=== PATIENT | female | born 1930 | race Caucasian/White ===

== ENCOUNTER 2018-02-09 12:29 | Emergency (ER) | payer MEDICARE ==
[~2018-02-09] VITALS: Ht 167.6 cm; Wt 81.0 kg
[~2018-02-09 12:29] MED LIST: ALBU8.5H8 IH; BUDE10.2 INH; DOXE10CA2 PO; GABA-341 PO; GUAI120015 PO; LEVO50TA67 PO; LOP25T PO; METF500T PO; PARO40TA81 PO; SIMV10TA2 PO; TRAM50TA2 PO
[2018-02-09 13:50] LABS: BASOPHILS % (AUTO) 0.3 % (0-1); EOSINOPHILS # (AUTO) 0.2 X10'3 (0-0.9); EOSINOPHILS % (AUTO) 2.2 % (0-6); HEMATOCRIT 38.8 % (35.0-45.0); HEMOGLOBIN 12.7 g/dl (12.0-16.0); LYMPHOCYTES # (AUTO) 1.9 X10'3 (1.1-4.8); MEAN CORPUSCULAR HEMOGLOBIN 30.9 PG (27.0-31.0); MEAN CORPUSCULAR HGB CONC 32.8 % (33.0-36.5); MEAN CORPUSCULAR VOLUME 94.3 FL (78-98); MEAN PLATELET VOLUME 8.1 FL (7.4-10.4); MONOCYTES # (AUTO) 0.5 X10'3 (0-0.9); MONOCYTES % (AUTO) 6.4 % (2-12); NEUTROPHILS # (AUTO) 5.4 X10'3 (1.8-7.7); NEUTROPHILS % (AUTO) 67.1 % (42-75); PLATELET COUNT 218 X10'3 (140-440); RED BLOOD COUNT 4.11 X10'6 (4.20-5.60); RED CELL DISTRIBUTION WIDTH 15.1 % (11.5-14.5)
[2018-02-09 14:01] LABS: INR 0.9 INR; PARTIAL THROMBOPLASTIN TIME 23 SECONDS (22-32); PROTHROMBIN TIME 9.1 SECONDS (9.0-12.0)
[2018-02-09 14:07] LABS: ALANINE AMINOTRANSFERASE 18 U/L (12-78); ALBUMIN 2.9 G/DL (3.4-5.0); ALBUMIN/GLOBULIN RATIO 0.8 (1.1-1.5); ALKALINE PHOSPHATASE 79 IU/L (46-116); ANION GAP 7 (8-16); ASPARTATE AMINO TRANSFERASE 15 U/L (10-37); BILIRUBIN,TOTAL 0.2 MG/DL (0.1-1.0); BLOOD UREA NITROGEN 18 MG/DL (7-18); BUN/CREATININE RATIO 14.3 (6.6-38.0); CALCIUM 8.4 MG/DL (8.5-10.1); CHLORIDE 105 MMOL/L (99-107); CREATININE 1.26 MG/DL (0.40-0.90); GLUCOSE 163 MG/DL (70-104); POTASSIUM 4.2 MMOL/L (3.5-5.1); SODIUM 144 MMOL/L (135-145); TOTAL CARBON DIOXIDE 32.1 MMOL/L (24-32); TOTAL PROTEIN 6.6 G/DL (6.4-8.2); eGFR 40 ML/MIN
[2018-02-09] MEDS ORDERED: normal saline 1000ML IV soln IVB ONE (14:10)
[2018-02-09 15:11] LABS: CLARITY,URINE CLEAR (Clear); COLOR,URINE YELLOW (Yellow); GLUCOSE, URINE NEGATIVE (Neg); KETONES,URINE TRACE mg/dl (Neg); LEUKOCYTE ESTERASE ,URINE NEGATIVE (Neg); NITRITES, URINE NEGATIVE (Neg); OCCULT BLOOD,URINE NEGATIVE (Neg); PH,URINE 5.5 (4.8-8.0); PROTEIN,URINE NEGATIVE (Neg); UROBILINOGEN,URINE 0.2 E.U/dL (0.2-1.0)
[2018-02-09 15:13] LABS: UA COLLECTION TYPE STRAIGHT CATH
[2018-02-09 15:34] VITALS: BP 133/68
== END 2018-02-09 15:37 | disposition home or self-care (01) ==
LOC: ER 12:30
DX: S81.802A Unspecified open wound, left lower leg, initial encounter (principal); E86.0 Dehydration; R53.1 Weakness; R51 Headache; I10 Essential (primary) hypertension; J44.9 Chronic obstructive pulmonary disease, unspecified; E11.9 Type 2 diabetes mellitus without complications; Z86.73 Personal history of transient ischemic attack (TIA), and cerebral infarction without residual deficits; Z98.890 Other specified postprocedural states; Z90.49 Acquired absence of other specified parts of digestive tract; Z87.442 Personal history of urinary calculi; Z79.899 Other long term (current) drug therapy; Z88.5 Allergy status to narcotic agent; X58.XXXA Exposure to other specified factors, initial encounter; Y93.89 Activity, other specified; Y92.89 Other specified places as the place of occurrence of the external cause; Y99.9 Unspecified external cause status
CPT/HCPCS: 36415; 70450; 71045; 80053; 81003; 84484; 85025; 85610; 85730; 93005; 96360; 99285; J7030; P9612

== ENCOUNTER 2018-06-07 09:18 | Inpatient (IN) | payer MEDICARE | END 2018-06-11 16:50 | disposition home or self-care (01) | LOC: ER 09:18 → ED HOLD 11:17 → SUR 3N 13:05 | DX: J44.1 Chronic obstructive pulmonary disease with (acute) exacerbation (principal); J18.9 Pneumonia, unspecified organism; E11.9 Type 2 diabetes mellitus without complications; F32.9 Major depressive disorder, single episode, unspecified ==

== ENCOUNTER 2018-09-10 11:58 | Inpatient (IN) | payer MEDICARE ==
[~2018-09-10] VITALS: Ht 170.2 cm; Wt 70.0 kg
[~2018-09-10 11:58] MED LIST changes: +ACET-2119 PO; +CEFP100T7 PO; +CHOL10002 PO; +CYAN-19 PO; +DOCU-20 PO; -DOXE10CA2 PO; +DULO60CA64 PO; +FOLI0.4T2 PO; -GABA-341 PO; +GABA-532 PO; -GUAI120015 PO; -METF500T PO; +NYST1000 PO; -PARO40TA81 PO; +TURM538C PO
--- NOTE | 2018-09-10 12:04 | NUR ---
EKG 1200
[2018-09-10] MEDS ORDERED: ondansetron/PF 4mg/2ml inj IV ONE (12:15)
[2018-09-10] MEDS ORDERED: morphine 4 MG/ML inj SYRINge IV ONE (12:15)
[2018-09-10 12:36] LABS: BASOPHILS # (AUTO) 0.1 X10'3 (0-0.2); BASOPHILS % (AUTO) 0.5 % (0-1); EOSINOPHILS % (AUTO) 0 % (0-6); HEMATOCRIT 37.3 % (35.0-45.0); HEMOGLOBIN 12.6 g/dl (12.0-16.0); LYMPHOCYTES # (AUTO) 0.6 X10'3 (1.1-4.8); LYMPHOCYTES % (AUTO) 3.4 % (21-51); MEAN CORPUSCULAR HEMOGLOBIN 31.7 PG (27.0-31.0); MEAN CORPUSCULAR HGB CONC 33.9 g/dL (33.0-36.5); MEAN CORPUSCULAR VOLUME 93.3 FL (78-98); MEAN PLATELET VOLUME 8.6 FL (7.4-10.4); MONOCYTES # (AUTO) 1.2 X10'3 (0-0.9); MONOCYTES % (AUTO) 6.2 % (2-12); NEUTROPHILS % (AUTO) 89.9 % (42-75); PLATELET COUNT 180 X10'3 (140-440); RED BLOOD COUNT 3.99 X10'6 (4.20-5.60); RED CELL DISTRIBUTION WIDTH 14.4 % (11.5-14.5); WHITE BLOOD COUNT 18.9 X10'3 (4.5-11.0)
[2018-09-10 12:40] LABS: ABG BASE EXCESS 5.2 mmol/L (-2.0-3.0); ABG HCO3 30.4 mmol/L (22.0-26.0); ABG OXYGEN SATURATION 81.4 % (95-98); ABG PH (T) 7.429 (7.350-7.450); ABG PO2 (T) 45.4 mmHg (83-108); ALLEN'S TEST Positive; FCOHb 1.3 % (0.5-1.5); FMetHb 0.3 % (0.3-1.12); FO2Hb 80.1 % (94-100); TOTAL HEMOGLOBIN 13.8 G/dl (12.0-16.0)
[2018-09-10 12:51] LABS: INR 1.1 INR; PARTIAL THROMBOPLASTIN TIME 27 SECONDS (22-32)
[2018-09-10 12:53] LABS: ALANINE AMINOTRANSFERASE 40 U/L (12-78); ALBUMIN 2.4 G/DL (3.4-5.0); ALBUMIN/GLOBULIN RATIO 0.6 (1.1-1.5); ALKALINE PHOSPHATASE 81 IU/L (46-116); ANION GAP 7 (8-16); ASPARTATE AMINO TRANSFERASE 29 U/L (10-37); BILIRUBIN,TOTAL 0.8 MG/DL (0.1-1.0); BLOOD UREA NITROGEN 28 MG/DL (7-18); CALCIUM 9.4 MG/DL (8.5-10.1); CHLORIDE 100 MMOL/L (99-107); CREATININE 1.27 MG/DL (0.40-0.90); GLUCOSE 173 MG/DL (70-104); POTASSIUM 3.9 MMOL/L (3.5-5.1); SODIUM 137 MMOL/L (135-145); TOTAL CARBON DIOXIDE 29.7 MMOL/L (24-32); TOTAL PROTEIN 6.5 G/DL (6.4-8.2); eGFR 40 ML/MIN
[2018-09-10] MEDS ORDERED: levoFLOXACIN-Levaquin 500mg/D5 100 ML IV ONE (13:00)
[2018-09-10 13:02] LABS: CLARITY,URINE SLIGHTLY CLOUDY (Clear); COLOR,URINE YELLOW (Yellow); GLUCOSE, URINE NEGATIVE (Neg); KETONES,URINE NEGATIVE (Neg); LEUKOCYTE ESTERASE ,URINE TRACE (Neg); NITRITES, URINE NEGATIVE (Neg); OCCULT BLOOD,URINE MODERATE (Neg); PH,URINE 5.5 (4.8-8.0); PROTEIN,URINE 30 mg/dl (Neg); UROBILINOGEN,URINE 0.2 E.U/dL (0.2-1.0)
[2018-09-10 13:06] LABS: UA COLLECTION TYPE STRAIGHT CATH
[2018-09-10 13:20] LABS: SQUAMOUS EPITHELIAL CELL,UR MODERATE /LPF (FEW)
[2018-09-10 13:23] LABS: BACTERIA,URINE FEW /HPF (Neg); RBC,URINE 0-2 /HPF (0-2); WBC,URINE 0-4 /HPF (0-4)
[2018-09-10] MEDS ORDERED: iohexol 350MG/ML 100ml bottle IV ONE (13:34)
--- NOTE | 2018-09-10 13:41 | NUR ---
PT RESTING ON BIPAP O2 SATS IMPROVED. FAMILY AT BEDSIDE WILL CONT TO MONITOR
--- NOTE | 2018-09-10 15:55 | NUR ---
HOSPTIALIST AT BEDSIDE
[2018-09-10] MEDS ORDERED: dextrose 50%-water 50ml dispensing syringe IV PRN ×2 (16:10)
[2018-09-10] MEDS ORDERED: potassium Cl 20 mEq SR tablet PO PRN ×2 (16:10)
[2018-09-10] MEDS ORDERED: MESSAGE TO PHARMACY PO ONE (16:10)
[2018-09-10] MEDS ORDERED: acetaminophen 650mg rectal suppository RC PRN (16:10)
[2018-09-10] MEDS ORDERED: magnesium 2GM in 50ml NS 50 ML IV PRN (16:10)
[2018-09-10] MEDS ORDERED: HYDROmorphone inj. 0.5 MG/0.5 ML DISP.SYRIN IV PRN (16:10)
[2018-09-10] MEDS ORDERED: glucagon, human recombinant 1mg kit SUBCUT PRN (16:10)
[2018-09-10] MEDS ORDERED: potassium Cl 40MEQ/NS 500ml 500 ML IV PRN ×2 (16:10)
[2018-09-10] MEDS ORDERED: vancomycin/NS 1 GM ADD-VANTAGE 250 ML IV ONE (16:10)
[2018-09-10] MEDS ORDERED: mag hydrox/Alum hydrox/simeth 30ml oral suspension PO PRN (16:10)
[2018-09-10] MEDS ORDERED: bisacodyl 10mg suppository rectal RC PRN (16:10)
[2018-09-10] MEDS ORDERED: acetaminophen 325mg tablet PO PRN (16:10)
[2018-09-10] MEDS ORDERED: magnesium 4gm in 100ml NS 100 ML IV PRN (16:10)
[2018-09-10] MEDS ORDERED: dextrose ORAL solution 15 GM/59 ML bottle PO PRN ×2 (16:10)
[2018-09-10] MEDS ORDERED: ondansetron/PF 4mg/2ml inj IV PRN (16:10)
--- NOTE | 2018-09-10 16:38 | NUR ---
REPORT CALLED TO FLOOR. RN TO TAKE PT UP VIA ROSALVA
--- NOTE | 2018-09-10 16:40 | NUR ---
Received report on patient, awaiting transfer to unit.
[2018-09-10 16:57] LABS: HEMOGLOBIN A1C 7.1 % (4.5-6.2)
[2018-09-10 17:00] VITALS: BP 104/59
--- NOTE | 2018-09-10 17:00 | NUR ---
Pt arrived to unit at this time wearing non-rebreather, transferred to hospital bed and attached to continuous mobile monitoring. Pt on non-rebreather at 5L and satting 91% per RT. BiPAP set up at bedside incase needed. Pt in visible discomfort, trying to speak but unable to speak clearly enough to be understood, family attempting to assist but still unable to fully understand patient. Patient desatted to mid 70's, showing visible signs of distress including gasping, grimacing, crying out. Non-rebreather removed and BiPAP put in place, O2 saturation improved to 84-85% on FiO2 of 60%, pt still visibly distressed/anxious. Notified respiratory therapy, requesting assistance. Pt complaint of pain, severe pain medication scale used, 1mg IV dilaudid administered. Pt visibly in less pain after administration. Respiratory therapy to patient bedside, FiO2 increased to 65%, pt now satting 88-90%. Pt appears more comfortable, however still very ill. IVF and scheduled IV meds administered, FSBG assessed. Family leaving at this time as patient appears more comfortable. Dr Franks at patient bedside, received order for olivarez catheter placement per protocol for monitoring critically ill patient. Still unable to do CT scans at this time due to patient's dependence on BiPAP, MD aware.
[2018-09-10] MEDS: HYDROmorphone 1 mg/ml syringe IV PRN (17:28)
[2018-09-10] MEDS: methylPREDNISolone sod succ 125mg/2ml vial IV SCH (17:46)
[2018-09-10] MEDS: normal saline 1000ml 1,000 ML IV SCH (17:46)
[2018-09-10 18:00] VITALS: BP 123/68
--- NOTE | 2018-09-10 18:15 | NUR ---
Problems reprioritized. Patient report given, questions answered & plan of care reviewed with JOSEF Miranda.
--- NOTE | 2018-09-10 18:36 | NUR ---
Patient in room PCU 3012. I have received report from Delmi BAHENA and had the opportunity to ask questions and assume patient care. pt is on bipa 65% fio2, O2 @90%, vanco @166, tachy at 114
[2018-09-10 19:11] LABS: ABG BASE EXCESS 1.8 mmol/L (-2.0-3.0); ABG HCO3 27.3 mmol/L (22.0-26.0); ABG OXYGEN SATURATION 92.5 % (95-98); ABG PCO2 (T) 46.2 mmHg (32.0-45.0); FCOHb 0.1 % (0.5-1.5); FMetHb 0.3 % (0.3-1.12); FO2Hb 92.1 % (94-100); MINUTE VOLUME 11 L/min; RESPIRATORY RATE (OBSERVED) 22 b/min; TOTAL HEMOGLOBIN 13.4 G/dl (12.0-16.0)
[2018-09-10 19:30] LABS: D-DIMER 15.46 MG/L FEU (0-0.50)
[2018-09-10] MEDS: ipratropium/albuterol 3ml nebule NEB SCH ×2 (20:05→23:02)
[2018-09-10] MEDS: insulin glargine (Lantus) pen - multi-dose SQ SCH (21:00)
[2018-09-10] MEDS ORDERED: HYDR2TAB28 PO (21:54)
[2018-09-10] MEDS ORDERED: MULT1CAP44 PO (21:54)
[2018-09-10] MEDS ORDERED: FLUT1BLS3 INH (21:54)
[2018-09-10] MEDS ORDERED: CELE200C PO (21:58)
--- NOTE | 2018-09-10 22:24 | NUR ---
PAGER ID: [phone] MESSAGE: pt Mar Cano, [id number], d-dimer is 15.5, CXR is negative, no CTA done, pt coming with acute respiratory distress, bipap 65% fio2, O2 92%. Thanks, Ruth BAHENA [phone]! Addendum: 09/10/18 at 2231 by Ruth Mota RN received and order of levonox 70mg SQ once
[2018-09-10] MEDS ORDERED: enoxaparin 40mg/0.4ml syringe SUBCUT ONE (22:30)
[2018-09-10] MEDS ORDERED: enoxaparin 30mg/0.3ml syringe SUBCUT ONE (22:45)
[2018-09-10 23:00] VITALS: BP 102/87
[2018-09-11] VITALS (9 sets, daily range): BP systolic 114–140; BP diastolic 61–94
[2018-09-11] MEDS: methylPREDNISolone sod succ 125mg/2ml vial IV SCH ×3 (00:21→16:54)
[2018-09-11] MEDS: cefepime 1GM/NS ADD-VANTAGE 100 ML IV SCH ×3 (00:21→21:49)
[2018-09-11] MEDS: metroNIDAZOLE-Flagyl 500mg/NS 100 ML IV SCH ×3 (01:44→16:54)
--- NOTE | 2018-09-11 06:21 | NUR ---
Problems reprioritized. Patient report given, questions answered & plan of care reviewed with Loulou BAHENA.
--- NOTE | 2018-09-11 06:35 | NUR ---
Patient in room PCU 3012. I have received report from Ruth BAHENA and had the opportunity to ask questions and assume patient care.
[2018-09-11] MEDS: ipratropium/albuterol 3ml nebule NEB SCH ×5 (07:33→23:00)
[2018-09-11] MEDS: K and/or MAG REPLACEMENT MC SCH (08:00)
[2018-09-11] MEDS ORDERED: enoxaparin 40mg/0.4ml syringe SQ SCH (08:00)
[2018-09-11] MEDS ORDERED: enoxaparin 80mg/0.8ml syringe SUBCUT SCH (08:00)
--- NOTE | 2018-09-11 08:02 | NUR ---
PAGER ID: [phone] MESSAGE: Mando [id number] [place]. Pt is having anxiety, has no anxiety medications ordered. Please advise, Loulou [phone]
[2018-09-11] MEDS ORDERED: LORazepam 0.5 MG tablet PO PRN (08:05)
[2018-09-11 08:22] LABS: HEMOGLOBIN 11.8 g/dl (12.0-16.0)
[2018-09-11 08:24] LABS: HEMATOCRIT 35.6 % (35.0-45.0); MEAN CORPUSCULAR HEMOGLOBIN 31.2 PG (27.0-31.0); MEAN CORPUSCULAR VOLUME 94.3 FL (78-98); MEAN PLATELET VOLUME 8.9 FL (7.4-10.4); PLATELET COUNT 171 X10'3 (140-440); RED BLOOD COUNT 3.77 X10'6 (4.20-5.60); RED CELL DISTRIBUTION WIDTH 14.6 % (11.5-14.5); WHITE BLOOD COUNT 16.6 X10'3 (4.5-11.0)
[2018-09-11 08:33] LABS: ALANINE AMINOTRANSFERASE 29 U/L (12-78); ALBUMIN 1.9 G/DL (3.4-5.0); ALBUMIN/GLOBULIN RATIO 0.4 (1.1-1.5); ALKALINE PHOSPHATASE 78 IU/L (46-116); ANION GAP 10 (8-16); ASPARTATE AMINO TRANSFERASE 16 U/L (10-37); BILIRUBIN,TOTAL 0.5 MG/DL (0.1-1.0); BLOOD UREA NITROGEN 37 MG/DL (7-18); BUN/CREATININE RATIO 30.3 (6.6-38.0); CALCIUM 9.4 MG/DL (8.5-10.1); CHLORIDE 103 MMOL/L (99-107); CREATININE 1.22 MG/DL (0.40-0.90); GLUCOSE 220 MG/DL (70-104); POTASSIUM 4.1 MMOL/L (3.5-5.1); SODIUM 139 MMOL/L (135-145); TOTAL CARBON DIOXIDE 26.4 MMOL/L (24-32); TOTAL PROTEIN 6.3 G/DL (6.4-8.2); eGFR 42 ML/MIN
[2018-09-11 08:48] LABS: PLATELET ESTIMATE NORMAL; TOTAL CELLS COUNTED 100
[2018-09-11] MEDS: normal saline 1000ml 1,000 ML IV SCH (08:49)
[2018-09-11] MEDS: enoxaparin 30mg/0.3ml syringe SQ SCH ×2 (09:24→19:56)
[2018-09-11] MEDS: enoxaparin 40mg/0.4ml syringe SQ SCH ×2 (09:25→19:56)
--- NOTE | 2018-09-11 09:41 | NUR ---
PAGER ID: [phone] MESSAGE: Jerome Estrella. Pt c/o Chest pain, protocol Stat EKG being done at this time. Loulou [phone]
--- NOTE | 2018-09-11 09:52 | NUR ---
PAGER ID: [phone] MESSAGE: [id number] Jerome. Have EKG please call and I will bring it to you. Loulou [phone]
--- NOTE | 2018-09-11 10:56 | NUR ---
Dr. Franks came to nurses station and reviewed EKG, ordered a one time troponin. No other orders at this time.
[2018-09-11] MEDS: insulin Lispro (HumaLOG) vial - multi-dose SQ SCH ×2 (12:32→19:54)
[2018-09-11] MEDS ORDERED: iohexol 350MG/ML 100ml bottle IV ONE (13:23)
--- NOTE | 2018-09-11 13:26 | NUR ---
Paged respiratory therapist for spectra link before going to CT. Vitaly Please give me call. Rm [id number]. Going down for CT. Thanks.
--- NOTE | 2018-09-11 14:52 | NUR ---
DM Consult: A1C 7.1. Pt admit w/ aspiration pneumonitis pending BSS. Pending CT abdomen r/t abdominal pain and results will determine if son makes pt comfort care per MD note. DM ed not appropriate at this time. Addendum: 09/11/18 at [address] Amended: Links added.
--- NOTE | 2018-09-11 15:34 | NUR ---
PAGER ID: [phone] MESSAGE: 301Jerome [place]. Pt's son is at the bedside. [facility] [id number]
--- NOTE | 2018-09-11 16:12 | NUR ---
PICC services was called to asses this patient for a PIV after multiple failed attempts. I was not able to palpate an appropriate vein but did find the patient's Cephalic vein using ultrasound. I was able to place a PIV after one attempt. The pt. did complain about the initial poke but otherwise tolerated the procedure well. Addendum: 09/11/18 at 1615 by Christ Adkins RN Amended: Links added.
--- NOTE | 2018-09-11 18:32 | NUR ---
Problems reprioritized. Patient report given, questions answered & plan of care reviewed with Ruth BAHENA. Patient stable at transfer of care.
--- NOTE | 2018-09-11 18:46 | NUR ---
Patient in room PCU 3012. I have received report from Loulou BAHENA and had the opportunity to ask questions and assume patient care. pt is on bipap 40% fi02 02 sat 94%, family at bedside, SR, NS @60
[2018-09-11] MEDS ORDERED: vancomycin/NS 1 GM ADD-VANTAGE 250 ML IV SCH (19:00)
[2018-09-11] MEDS: lactobacillus rhamnosus 10,000 MMU CELLS/CAPSULE PO SCH (20:00)
[2018-09-11] MEDS: insulin glargine (Lantus) pen - multi-dose SQ SCH (22:04)
[2018-09-11] MEDS: HYDROmorphone 1 mg/ml syringe IV PRN (22:07)
--- NOTE | 2018-09-11 22:40 | NUR ---
fio2 is down to 25% and pt O2 is on 94-98%
[2018-09-12] MEDS: metroNIDAZOLE-Flagyl 500mg/NS 100 ML IV SCH ×3 (00:28→16:39)
[2018-09-12] MEDS: methylPREDNISolone sod succ 125mg/2ml vial IV SCH ×3 (00:28→16:39)
[2018-09-12] MEDS: normal saline 1000ml 1,000 ML IV SCH ×2 (01:29→15:06)
[2018-09-12 03:00] VITALS: BP 106/59
--- NOTE | 2018-09-12 03:00 | NUR ---
Ousmane RT put a NS with 3L on pt, O2 is 97%, pt is tolerating well
--- NOTE | 2018-09-12 06:11 | NUR ---
Problems reprioritized. Patient report given, questions answered & plan of care reviewed with Kirsten BAHENA.
--- NOTE | 2018-09-12 06:34 | NUR ---
Patient in room PCU 3012. I have received report from JOSEF Miranda and had the opportunity to ask questions and assume patient care.
[2018-09-12] MEDS: ipratropium/albuterol 3ml nebule NEB SCH ×3 (06:52→15:00)
[2018-09-12 07:00] VITALS: BP 125/77
[2018-09-12] MEDS: K and/or MAG REPLACEMENT MC SCH (08:00)
[2018-09-12] MEDS: cefepime 1GM/NS ADD-VANTAGE 100 ML IV SCH (08:03)
[2018-09-12] MEDS: lactobacillus rhamnosus 10,000 MMU CELLS/CAPSULE PO SCH (08:03)
[2018-09-12] MEDS: enoxaparin 30mg/0.3ml syringe SQ SCH (08:04)
[2018-09-12] MEDS: enoxaparin 40mg/0.4ml syringe SQ SCH (08:05)
[2018-09-12] MEDS: HYDROmorphone 1 mg/ml syringe IV PRN ×3 (10:11→20:02)
--- NOTE | 2018-09-12 10:25 | NUR ---
Pt's Humalog not in pt specific bin in [facility]. Messaged pharmacy for replacement.
[2018-09-12 11:00] VITALS: BP 103/65
[2018-09-12] MEDS: insulin Lispro (HumaLOG) vial - multi-dose SQ SCH (13:47)
--- NOTE | 2018-09-12 14:30 | NUR ---
Paged Dr. Mcdermott re pt family request. PAGER ID: [phone] MESSAGE: Pt Mar Cano in [id number]. Family at bedside, wishing to speak with you. Thanks! JOSEF Curtis [phone]
[2018-09-12 15:00] VITALS: BP 116/63
[2018-09-12] MEDS ORDERED: oxyCODONE/APAP 10/325mg tablet PO PRN ×2 (18:20)
[2018-09-12] MEDS ORDERED: oxyCODONE/APAP 5-325mg tablet PO PRN ×2 (18:20)
--- NOTE | 2018-09-12 18:44 | NUR ---
Problems reprioritized. Patient report given, questions answered & plan of care reviewed with JOSEF Street.
--- NOTE | 2018-09-12 18:46 | NUR ---
Patient in room PCU 3020. I have received report from Kirsten BAHENA and had the opportunity to ask questions and assume patient care. Pt currently sleeping. Recently placed on comfort care. DNR band placed at this time.
[2018-09-13] MEDS: HYDROmorphone 1 mg/ml syringe IV PRN ×3 (00:18→10:47)
--- NOTE | 2018-09-13 06:24 | NUR ---
Problems reprioritized. Patient report given, questions answered & plan of care reviewed with Rosa Maria BAHENA.
--- NOTE | 2018-09-13 06:31 | NUR ---
Patient in room PCU 3020. I have received report from JOSEF Street and had the opportunity to ask questions and assume patient care. Pt seen for bedside report, resting with eyes closed
[2018-09-13] MEDS: K and/or MAG REPLACEMENT MC SCH (08:00)
[2018-09-13] MEDS: normal saline 1000ml 1,000 ML IV SCH (08:13)
--- NOTE | 2018-09-13 13:31 | NUR ---
Family at bedside visiting patient.
[2018-09-13] MEDS ORDERED: morphine 10mg/0.5ml (conc. morphine) oral syringe PO PRN ×2 (14:25)
[2018-09-13] MEDS ORDERED: HYDROmorphone/NS 1 mg/ml CADD 50 ML IV SCH (18:10)
[2018-09-13] MEDS ORDERED: CADD PCA waste documentation MC SCH (18:20)
[2018-09-13] MEDS ORDERED: VANCOMYCIN LEVEL IV ONE (18:30)
[2018-09-13 19:00] VITALS: BP 151/71
[2018-09-13] MEDS: HYDROmorphone/NS 1 mg/ml CADD 50 ML IV SCH ×3 (20:18→23:00)
[2018-09-13] MEDS: LORazepam 2 mg/ml vial IV PRN (20:46)
[2018-09-14] MEDS: HYDROmorphone/NS 1 mg/ml CADD 50 ML IV SCH ×11 (01:00→23:00)
[2018-09-14] MEDS: normal saline 1000ml 1,000 ML IV SCH ×2 (03:29→20:00)
[2018-09-14 06:00] VITALS: BP 142/73
--- NOTE | 2018-09-14 06:15 | NUR ---
Patient in room PCU 3020. I have received report from JOSEF Street and had the opportunity to ask questions and assume patient care.
--- NOTE | 2018-09-14 06:33 | NUR ---
Problems reprioritized. Patient report given, questions answered & plan of care reviewed with Kirsten BAHENA.
--- NOTE | 2018-09-14 12:30 | NUR ---
Difficulty in changing CADD pump settings per Dr. Natarajan's order to decrease rate from 0.2mg/hr to 0.1mg/hr. [place] volume inadvertently reset to 45mL from 45.7mL.
[2018-09-14] MEDS ORDERED: HYDROmorphone/NS 1 mg/ml CADD 50 ML IV SCH (13:00)
--- NOTE | 2018-09-14 13:50 | NUR ---
CADD pump documentation after inadvertent residual amount change. 44.9 residual volume, 0.1mL given.
--- NOTE | 2018-09-14 15:19 | NUR ---
Extended PIV inserted to left upper arm using ultrasound x 1 attempt after 2 failed attempts to the right upper arm. Patient gasping every time she was touched. PROGRAM MANAGEMENT ANALYST to help position arm to minimize pain. Addendum: 09/14/18 at 1522 by Mamie Carlos RN Amended: Links added.
--- NOTE | 2018-09-14 18:38 | NUR ---
Patient in room PCU 3020. I have received report from Kirsten BAHENA and had the opportunity to ask questions and assume patient care. Pt is currently lying in bed. She was arousable last night being on the CADD pump at 0.20 mg/hr, but was more difficult to arouse this morning per report. Her continuous dose has been decreased to 0.10 mg/hr. CADD pump has been assessed at this time. It is at the correct dose. Easier to arouse. Is not moaning in pain the way she was before her CADD pump. New JUAN C extended placed today.
--- NOTE | 2018-09-14 18:54 | NUR ---
Problems reprioritized. Patient report given, questions answered & plan of care reviewed with JOSEF Street.
[2018-09-14 19:00] VITALS: BP 124/88
[2018-09-15] MEDS: HYDROmorphone/NS 1 mg/ml CADD 50 ML IV SCH ×6 (01:00→11:00)
[2018-09-15] MEDS ORDERED: LORazepam 2 mg/ml vial IV PRN (02:45)
--- NOTE | 2018-09-15 06:05 | NUR ---
Problems reprioritized. Patient report given, questions answered & plan of care reviewed with Airam BAHENA.
--- NOTE | 2018-09-15 06:10 | NUR ---
Patient in room PCU 3020. I have received report from Minerva BAHENA and had the opportunity to ask questions and assume patient care. [employer]LE CREWMAN pump continuous dose of .10 mg/hr. Pt resting in no apparent distress, will continue to monitor.
[2018-09-15 07:00] VITALS: BP 165/75
[2018-09-15] MEDS: LORazepam 2 mg/ml vial IV PRN (09:30)
--- NOTE | 2018-09-15 10:16 | NUR ---
Pt with low Kevin of 12, no documented wounds. Patient's code status has been changed to DNR with comfort care. Will continue to follow per protocol. Recommendations: 1) Monitor need for bowel care per comfort care protocol Addendum: 09/15/18 at [address] Amended: Links added.
[2018-09-15] MEDS ORDERED: HYDROmorphone 1 mg/ml syringe IV ONE (12:25)
--- NOTE | 2018-09-15 12:46 | NUR ---
Called report to Shantelle BAHENA at [facility]. paster supervisor time is 1430. I communicated with Shantelle that our CAD pump will disconnected before she leaves and that I will be giving pt 1 mg of Dilaudid IV push once CAD is disconnected.
[2018-09-15] MEDS: normal saline 1000ml 1,000 ML IV SCH (12:49)
--- NOTE | 2018-09-15 15:06 | NUR ---
Pt transported to [facility] via gurney from patient transport. CAD pump discontinued, gave 1 mg of Dilaudid IV push. Family will meet pt at [facility] with all of their belongings.
--- NOTE | 2018-09-15 15:20 | NUR ---
CADD pump discontinued and wasted with Tony BAHENA and So BAHENA. Total of 2.6 mg of Dilaudid given and 42.4 mg of residual volume remained.
== END 2018-09-15 14:56 | DRG 871 ==
LOC: ER 11:59 → MED 3N 17:24 → PCU 3S 17:32
PROVIDERS: ADMIT Family Medicine; ATTEND Family Medicine
PROC: 5A09457 Assistance with Respiratory Ventilation, 24-96 Consecutive Hours, Continuous Positive Airway Pressure (ICD-10-PCS; principal; 2018-09-10)
PROC: B32T1ZZ Computerized Tomography (CT Scan) of Left Pulmonary Artery using Low Osmolar Contrast (ICD-10-PCS; 2018-09-11)
PROC: B3201ZZ Computerized Tomography (CT Scan) of Thoracic Aorta using Low Osmolar Contrast (ICD-10-PCS; 2018-09-11)
PROC: B32S1ZZ Computerized Tomography (CT Scan) of Right Pulmonary Artery using Low Osmolar Contrast (ICD-10-PCS; 2018-09-11)
PROC: B4201ZZ Computerized Tomography (CT Scan) of Abdominal Aorta using Low Osmolar Contrast (ICD-10-PCS; 2018-09-11)
PROC: B4241ZZ Computerized Tomography (CT Scan) of Superior Mesenteric Artery using Low Osmolar Contrast (ICD-10-PCS; 2018-09-11)
PROC: B4281ZZ Computerized Tomography (CT Scan) of Bilateral Renal Arteries using Low Osmolar Contrast (ICD-10-PCS; 2018-09-11)
PROC: B42C1ZZ Computerized Tomography (CT Scan) of Pelvic Arteries using Low Osmolar Contrast (ICD-10-PCS; 2018-09-11)
PROC: B4211ZZ Computerized Tomography (CT Scan) of Celiac Artery using Low Osmolar Contrast (ICD-10-PCS; 2018-09-11)
DX: A41.9 Sepsis, unspecified organism (principal); J69.0 Pneumonitis due to inhalation of food and vomit; I26.99 Other pulmonary embolism without acute cor pulmonale; J96.01 Acute respiratory failure with hypoxia; J44.1 Chronic obstructive pulmonary disease with (acute) exacerbation; M48.54XA Collapsed vertebra, not elsewhere classified, thoracic region, initial encounter for fracture; E11.9 Type 2 diabetes mellitus without complications; I10 Essential (primary) hypertension; K57.30 Diverticulosis of large intestine without perforation or abscess without bleeding; F32.9 Major depressive disorder, single episode, unspecified; G89.29 Other chronic pain; M54.9 Dorsalgia, unspecified; Z60.2 Problems related to living alone; Z51.5 Encounter for palliative care; Z66 Do not resuscitate; Z90.49 Acquired absence of other specified parts of digestive tract; Z90.11 Acquired absence of right breast and nipple; Z90.710 Acquired absence of both cervix and uterus; Z88.5 Allergy status to narcotic agent; Z91.048 Other nonmedicinal substance allergy status; Z79.899 Other long term (current) drug therapy; I69.334 Monoplegia of upper limb following cerebral infarction affecting left non-dominant side; Z85.3 Personal history of malignant neoplasm of breast; Z87.442 Personal history of urinary calculi; Z87.891 Personal history of nicotine dependence; Z80.9 Family history of malignant neoplasm, unspecified
CPT/HCPCS: 36415; 36600; 71045; 80053; 81001; 82803; 82948; 83036; 83735; 83880; 84145; 84484; 85018; 85025; 85379; 85610; 85730; 87040; 87070; 87077; 87088; 87186; 92508; 92616; 93005; 94640; 94660; 94760; 96365; 96375; 99285; G0378; J0692; J1170; J1650; J1815; J1956; J2060; J2270; J2405; J2930; J3370; J3490; J7030; Q9967